=== PATIENT | female | born 1960 | race Caucasian/White ===

== ENCOUNTER 2017-12-05 11:35 | Day surgery (SDC) | payer OTHER ==
[~2017-12-05 11:35] MED LIST: DIPHENHYDRAMINE HCL 50 MG/ML VIAL ONE; EPINEPHRINE INJ 1 MG/10 ML DISP.SYRIN ONE; FENTANYL CITRATE INJ/PF 100 MCG/2 ML AMPUL ONE; FLUMAZENIL INJ 0.5 MG/5 ML VIAL ONE; GLUCAGON,HUMAN RECOMB 1 MG INJ ONE; MIDAZOLAM 2 MG/2 ML INJ ONE; NALOXONE HCL INJ/PF 0.4 MG/1 ML SDV ONE; ONDANSETRON HCL INJ/PF 4 MG/2 ML SDV ONE
[2017-12-05] MEDS: MIDAZOLAM 2 MG/2 ML INJ ONE ×2 (12:07→12:11)
--- NOTE | 2017-12-05 12:53 | Operative Report ---
Operative Report DATE OF SURGERY: 12/05/17 Operative Report: The risks benefits and alternatives of the procedure explained to the patient in detail and informed consent is obtained.A GIF Olympus video scope was inserted into the patient's mouth and hypopharynx, the esophagus is identified intubated and insufflated, the scope was then advanced through the esophagus stomach and duodenum, retroflexion maneuver is done, the esophagus stomach and first and second portions of the duodenum examined PREOPERATIVE DIAGNOSIS: Epigastric pain, rule out peptic ulcer disease POSTOPERATIVE DIAGNOSIS: Gastritis status post biopsy rule out Helicobacter pylori OPERATION: EGD with biopsy SURGEON: MARY KEITA ANESTHESIA: Moderate Sedation - 4 mg of Versed, 50 mcg of fentanyl. Conscious sedation monitoring time 30 minutes. TISSUE REMOVED OR ALTERED: As noted above. COMPLICATIONS: None. ESTIMATED BLOOD LOSS: None. INTRAOPERATIVE FINDINGS: As noted above. PROCEDURE: Patient tolerated the procedure well. No immediate postprocedure complications are noted. Patient discharged in good condition. Discharge date 12/05/2017. Discharge diet: Regular. Discharge activity: Regular. 2-3 week follow-up to discuss findings. Patient is instructed to call the office or proceed to the emergency room should there be any further problems or questions. We will wait on the pathology.
[2017-12-05 13:36] VITALS: BP 123/79
== END 2017-12-05 13:30 | disposition home or self-care (01) ==
LOC: END 11:35
PROVIDERS: ATTEND Internal Medicine Gastroenterology
DX: K29.70 Gastritis, unspecified, without bleeding (principal); J45.909 Unspecified asthma, uncomplicated; E78.5 Hyperlipidemia, unspecified; G47.33 Obstructive sleep apnea (adult) (pediatric); J45.20 Mild intermittent asthma, uncomplicated; R60.9 Edema, unspecified; Z79.899 Other long term (current) drug therapy; Z79.1 Long term (current) use of non-steroidal anti-inflammatories (NSAID); Z88.5 Allergy status to narcotic agent; Z88.8 Allergy status to other drugs, medicaments and biological substances
CPT/HCPCS: 43239; 88305 ×2; J2250; J3010; J0171; J1200; J1610; J2310; J2405; J3490

== ENCOUNTER 2018-07-04 16:20 | Observation (INO) | payer OTHER ==
[~2018-07-04 16:20] MED LIST changes: +DEXAMETHASONE SOD PHOSPHATE INJ 4 MG/1 ML VIAL ONE; -DIPHENHYDRAMINE HCL 50 MG/ML VIAL ONE; -EPINEPHRINE INJ 1 MG/10 ML DISP.SYRIN ONE; -FENTANYL CITRATE INJ/PF 100 MCG/2 ML AMPUL ONE; -FLUMAZENIL INJ 0.5 MG/5 ML VIAL ONE; -GLUCAGON,HUMAN RECOMB 1 MG INJ ONE; +GLYCOPYRROLATE 1 MG/5 ML SYRINGE ONE; -MIDAZOLAM 2 MG/2 ML INJ ONE; -NALOXONE HCL INJ/PF 0.4 MG/1 ML SDV ONE; +NEOSTIGMINE METHYLSULFATE 10 MG/10 ML VIAL ONE; +ROCURONIUM BROMIDE INJ 50 MG/5 ML VIAL IV ONE; +SUCCINYLCHOLINE CHLORIDE INJ 200 MG/10 ML VIAL ONE
[2018-07-04] MEDS ORDERED: ONDANSETRON HCL INJ/PF 4 MG/2 ML SDV IV ONE (16:51)
[2018-07-04] MEDS ORDERED: MORPHINE SULFATE 10 MG/ML INJ IV ONE ×2 (16:51→18:34)
--- NOTE | 2018-07-04 16:57 | ER Document Report ---
ED Medical Screen (RME) - General Chief Complaint: Flank Pain Stated Complaint: ABDOMINAL PAIN Time Seen by Provider: 07/04/18 16:46 Primary Care Provider: TIERA KONG MD [Primary Care Provider] - Follow up as needed Mode of Arrival: Wheelchair Information source: Patient, Relative Notes: 57-year-old female with hypertension, previous history of kidney stones presents with acute onset of generalized abdominal pain that started at 5 AM. She describes the pain as severe, constant with associated nausea, vomiting. I have greeted and performed a rapid initial assessment of this patient. A comprehensive ED assessment and evaluation of the patient, analysis of test results and completion of medical decision making process we will be contacted by additional ED providers. PHYSICAL EXAMINATION: Vital signs reviewed GENERAL: Moderate distress, LUNGS: No respiratory distress Musculoskeletal: Normal range of motion NEUROLOGICAL: Normal speech, normal gait. PSYCH: Normal mood, normal affect. SKIN: Warm, Dry, normal turgor, no rashes or lesions noted. TRAVEL OUTSIDE OF THE [place] IN LAST 30 DAYS: No - HPI Onset: This morning Onset/Duration: Sudden Quality of pain: Throbbing Severity: Severe Associated Symptoms: Abdominal pain, Nausea, Vomiting Exacerbated by: Denies Relieved by: Denies Similar symptoms previously: No Recently seen / treated by doctor: No - Related Data Smoking: Non-smoker Frequency of alcohol use: None Drug Abuse: None Allergies/Adverse Reactions: celecoxib [From Celebrex] Allergy (Verified 07/04/18 16:22) VOMITING diclofenac [Diclofenac] Allergy (Verified 07/04/18 16:22) lisinopril [Lisinopril] Allergy (Verified 07/04/18 16:22) lorazepam [From Ativan] Allergy (Verified 07/04/18 16:22) oxycodone HCl [From Percocet] Allergy (Verified 07/04/18 16:22) povidone-iodine [From Betadine] Allergy (Verified 07/04/18 16:22) Generalized rash pramipexole di-HCl [From Mirapex] Allergy (Verified 07/04/18 16:22) Nausea quetiapine fumarate [From Seroquel] Allergy (Verified 07/04/18 16:22) Irritability Soap [From Betadine] Allergy (Verified 07/04/18 16:22) Generalized rash Sulfa (Sulfonamide Antibiotics) Allergy (Verified 07/04/18 16:22) Generalized rash ketorolac [From Toradol] Adverse Reaction (Verified 07/04/18 16:22) Delusions REQUIM Adverse Reaction (Uncoded 07/04/18 16:22) Past Medical History - Social History Frequency of alcohol use: Occasional Drug Abuse: None - Past Medical History Cardiac Medical History: Reports: Hx Hypertension Denies: Hx Coronary Artery Disease, Hx Heart Attack Pulmonary Medical History: Reports: Hx Asthma - "WINTER ASTHMA" Denies: Hx Bronchitis, Hx COPD, Hx Pneumonia Neurological Medical History: Denies: Hx Cerebrovascular Accident, Hx Seizures Renal/ Medical History: Reports: Hx Kidney Stones. Denies: Hx Peritoneal Dialysis Musculoskeltal Medical History: Denies Hx Arthritis Past Surgical History: Reports: Hx Hysterectomy, Hx Orthopedic Surgery - L foot, L shoulder - Immunizations Hx Diphtheria, Pertussis, Tetanus Vaccination: Yes Physical Exam - Vital signs Vitals: Temp Pulse Resp BP Pulse Ox 98.7 F 110 H 20 130/63 H 98 07/04/18 16:26 07/04/18 16:26 07/04/18 16:26 07/04/18 16:26 07/04/18 16:26 Course - Vital Signs Vital signs: Temp Pulse Resp BP Pulse Ox 98.7 F 110 H 20 130/63 H 98 07/04/18 16:26 07/04/18 16:26 07/04/18 16:26 07/04/18 16:26 07/04/18 16:26 Doctor's Discharge - Discharge Referrals: TIERA KONG MD [Primary Care Provider] - Follow up as needed
[2018-07-04 17:34] LABS: HEMATOCRIT 43.1 % (36.0-47.0); HEMOGLOBIN 15.1 g/dL (12.0-15.5); MEAN CORPUSCULAR HEMOGLOBIN 30.3 pg (27.0-33.4); MEAN CORPUSCULAR VOLUME 87 fl (80-97); PLATELET COUNT 321 10^3/uL (150-450); RED BLOOD COUNT 4.98 10^6/uL (3.72-5.28); RED CELL DISTRIBUTION WIDTH 12.6 % (11.5-14.0); WHITE BLOOD COUNT 21.3 10^3/uL (4.0-10.5)
--- NOTE | 2018-07-04 17:45 | ER Document Report ---
ED GI/ - General Chief Complaint: Flank Pain Stated Complaint: ABDOMINAL PAIN Time Seen by Provider: 07/04/18 16:46 Primary Care Provider: TIERA KONG MD [Primary Care Provider] - Follow up as needed Mode of Arrival: Wheelchair Notes: Patient was awakened about 5:15 AM this morning by severe pain in her lower abdomen. Over the following 5 hours, the pain subsided in the front and went to the lower back bilaterally. She is been nauseated and vomited twice. No change in bowel habits. She has not produce very much urine today, less than a teaspoon at a time, but feels her bladder may be full. She has not had any fever, although she has felt cold. She is never had any abdominal surgeries. Thinks she passed a kidney stone last spring, but no other times. PMH: Hypertension, laryngeal reflux, allergies. TRAVEL OUTSIDE OF THE [place] IN LAST 30 DAYS: No - Related Data Allergies/Adverse Reactions: celecoxib [From Celebrex] Allergy (Verified 07/04/18 16:22) VOMITING diclofenac [Diclofenac] Allergy (Verified 07/04/18 16:22) lisinopril [Lisinopril] Allergy (Verified 07/04/18 16:22) lorazepam [From Ativan] Allergy (Verified 07/04/18 16:22) oxycodone HCl [From Percocet] Allergy (Verified 07/04/18 16:22) povidone-iodine [From Betadine] Allergy (Verified 07/04/18 16:22) Generalized rash pramipexole di-HCl [From Mirapex] Allergy (Verified 07/04/18 16:22) Nausea quetiapine fumarate [From Seroquel] Allergy (Verified 07/04/18 16:22) Irritability Soap [From Betadine] Allergy (Verified 07/04/18 16:22) Generalized rash Sulfa (Sulfonamide Antibiotics) Allergy (Verified 07/04/18 16:22) Generalized rash ketorolac [From Toradol] Adverse Reaction (Verified 07/04/18 16:22) Delusions REQUIM Adverse Reaction (Uncoded 07/04/18 16:22) Past Medical History - General Information source: Patient, Relative - Social History Smoking Status: Never Smoker Frequency of alcohol use: Occasional Drug Abuse: None Family History: Reviewed & Not Pertinent Patient has suicidal ideation: No Patient has homicidal ideation: No - Past Medical History Cardiac Medical History: Reports: Hx Hypertension Pulmonary Medical History: Reports: Hx Asthma - "WINTER ASTHMA" Renal/ Medical History: Reports: Hx Kidney Stones Past Surgical History: Reports: None, Hx Hysterectomy, Hx Orthopedic Surgery - L foot, L shoulder - Immunizations Hx Diphtheria, Pertussis, Tetanus Vaccination: Yes Review of Systems - Review of Systems Notes: REVIEW OF SYSTEMS: CONSTITUTIONAL : Denies fever. EENT: Denies eye, ear, nose or mouth or throat pain or other symptoms. CARDIOVASCULAR: Denies chest pain. RESPIRATORY: Denies cough, chest congestion, or shortness of breath. GASTROINTESTINAL: See HPI. GENITOURINARY: Denies difficulty or painful urinating, urinary frequency, blood in urine. MUSCULOSKELETAL: Denies back or neck pain. Denies joint pain or swelling. SKIN: Denies rash or skin lesions. NEUROLOGICAL: Denies LOC or altered mental status. Denies headache. Denies sensory loss or motor deficits. ALL OTHER SYSTEMS REVIEWED AND NEGATIVE. Constitutional: denies: Fever Gastrointestinal: denies: Vomiting Musculoskeletal: denies: Leg swelling Skin: Other - no hives. denies: Rash Neurological/Psychological: Other - no slurred speech Physical Exam - Vital signs Vitals: Temp Pulse Resp BP Pulse Ox 98.7 F 110 H 20 130/63 H 98 07/04/18 16:26 07/04/18 16:26 07/04/18 16:26 07/04/18 16:26 07/04/18 16:26 Interpretation: Tachycardic. No: Hypotensive - Mild - Notes Notes: PHYSICAL EXAMINATION: GENERAL: Well-appearing, but appears to be in pain and I am seeing her after she has had 5 mg of morphine IV from triage. Says her pain was a 5 before the pain medication and is now 2 or 3. HEAD: Atraumatic, normocephalic. EYES: Pupils equal round and reactive to light, extraocular movements intact. NECK: Normal range of motion, supple. LUNGS: Breath sounds clear and equal bilaterally. HEART: Regular rate and rhythm without murmurs. ABDOMEN: Soft, with some diffuse tenderness throughout the entire abdomen without any localization. Perhaps some guarding, but no rebound. No masses felt. No bruits heard. BACK: No tenderness throughout entire back. EXTREMITIES: Normal range of motion without pain. NEUROLOGICAL: Difficult to walk because of pain. Normal speech. Grossly normal sensory, motor, and reflex exams. Awake, alert, and oriented x3. Cranial ne rves normal. PSYCH: Normal mood, normal affect. SKIN: Warm, dry, no rashes. Course - Re-evaluation Re-evalutation: 07/04/18 19:08 IV fluids were administered. Antibiotics were administered IV. CT scan was obtained with IV contrast. CT scan reviewed with radiologist who commented on the findings of what looks like a cecum down in the pelvis with some radiopaque substance in the cecal area. Requested consult by surgeon weatherization operations manager and Dr. Benavides came to the ER and reviewed the patient's CT scan with me in shows a very large appendix with an appendicolith. Patient will be going to the OR for appendectomy. - Vital Signs Vital signs: Temp Pulse Resp BP Pulse Ox 100 F 110 H 18 130/63 H 96 07/04/18 18:59 07/04/18 18:59 07/04/18 18:59 07/04/18 16:26 07/04/18 18:59 - Laboratory Result Diagrams: 07/04/18 17:18 07/04/18 17:18 Laboratory results interpreted by me: 07/04/18 07/04/18 07/04/18 17:18 17:18 18:01 WBC 21.3 H Seg Neuts % (Manual) 87 H Lymphocytes % (Manual) 9 L Abs Neuts (Manual) 18.5 H Glucose 111 H ALT 8 L Urine Ketones 20 H Discharge - Discharge Clinical Impression: Abdominal pain, Acute appendicitis Condition: Stable Disposition: ADMITTED INPATIENT Admitting Provider: Surgicalist Unit Admitted: OR Referrals: TIERA KONG MD [Primary Care Provider] - Follow up as needed
[2018-07-04 17:46] LABS: ALANINE AMINOTRANSFERASE 8 U/L (9-52); ALBUMIN 4.7 g/dL (3.5-5.0); ALKALINE PHOSPHATASE 72 U/L (38-126); ANION GAP 15 (5-19); ASPARTATE AMINO TRANSFERASE 20 U/L (14-36); BILIRUBIN,DIRECT 0.2 mg/dL (0.0-0.4); BILIRUBIN,TOTAL 0.8 mg/dL (0.2-1.3); BLOOD UREA NITROGEN 14 mg/dL (7-20); CARBON DIOXIDE 26 mmol/L (22-30); CHLORIDE 98 mmol/L (98-107); GLUCOSE 111 mg/dL (75-110); LIPASE 71.3 U/L (23-300); POTASSIUM 4.2 mmol/L (3.6-5.0); SODIUM 139.3 mmol/L (137-145); TOTAL PROTEIN 7.3 g/dL (6.3-8.2)
[2018-07-04 17:52] LABS: ABSOLUTE LYMPHOCYTES# (MANUAL) 1.9 10^3/uL (0.5-4.7); ABSOLUTE MONOCYTES # (MANUAL) 0.9 10^3/uL (0.1-1.4); ABSOLUTE NEUTROPHILS# (MANUAL) 18.5 10^3/uL (1.7-8.2); BASOPHILS % (MANUAL) 0 % (0-2); EOSINOPHILS % (MANUAL) 0 % (0-6); LYMPHOCYTES % (MANUAL) 9 % (13-45); MONOCYTES % (MANUAL) 4 % (3-13); SEGMENTED NEUTROPHILS % (MAN) 87 % (42-78); TOTAL CELLS COUNTED 100
[2018-07-04 17:54] LABS: OVALOCYTES SLIGHT; PLATELET COMMENT ADEQUATE; POIKILOCYTOSIS SLIGHT
[2018-07-04] MEDS ORDERED: NORMAL SALINE 500 ML IV ONE (18:30)
[2018-07-04] MEDS ORDERED: CEFTRIAXONE 1 GM/D5W RTU 1 GM/50 ML RTUPB IV ONE (18:30)
[2018-07-04] MEDS ORDERED: NORMAL SALINE 1000 ML 1,000 ML IV ONE (18:33)
[2018-07-04 18:36] LABS: APPEARANCE,URINE CLEAR; BILIRUBIN,URINE NEGATIVE (NEGATIVE); COLOR,URINE YELLOW; GLUCOSE, URINE NEGATIVE (NEGATIVE); KETONES,URINE 20 mg/dL (NEGATIVE); LEUKOCYTE ESTERASE,URINE NEGATIVE (NEGATIVE); NITRITE,URINE NEGATIVE (NEGATIVE); PROTEIN,URINE NEGATIVE (NEGATIVE); URINE SPECIFIC GRAVITY 1.023; UROBILINOGEN,URINE NEGATIVE mg/dL (<2.0)
--- NOTE | 2018-07-04 18:51 | RADIOLOGY REPORT (SQ) ---
EXAM DESCRIPTION: CT ABD/PELVIS WITH IV ONLY COMPLETED DATE/TIME: 07/04/2018 6:32 pm REASON FOR STUDY: Acute onset of abdominal pain COMPARISON: None. TECHNIQUE: CT scan of the abdomen and pelvis performed using helical scanning technique with dynamic intravenous contrast injection. No oral contrast. Images reviewed with lung, soft tissue, and bone windows. Reconstructed coronal and sagittal MPR images reviewed. Delayed images for evaluation of the urinary system also acquired. All images stored on PACS. All CT scanners at this facility use dose modulation, iterative reconstruction, and/or weight based d osing when appropriate to reduce radiation dose to as low as reasonably achievable (ALARA). [facility]: Dose Right [facility]: CareDose [facility]: Dose Right [facility]: Teradose 4D [facility]: SkilledWizard CONTRAST TYPE AND DOSE: contrast/concentration: Isovue 350.00 mg/ml; Total Contrast Delivered: 65.0 ml; Total Saline Delivered: 65.0 ml RENAL FUNCTION: BUN 14 creatinine 0.71 RADIATION DOSE: CT Rad equipment meets quality standard of care and radiation dose reduction techniq ues were employed. CTDIvol: 5.1 - 6.5 mGy. DLP: 597 mGy-cm.. LIMITATIONS: None. FINDINGS: LOWER CHEST: No significant findings. No nodules or infiltrates. LIVER: Normal size. No masses. No dilated ducts. SPLEEN: Normal size. No focal lesions. PANCREAS: No masses. No significant calcifications. No adjacent inflammation or peripancreatic fluid collections. Pancreatic duct not dilated. GALLBLADDER: No identified stones by CT criteria. No inflammatory changes to suggest cholecystitis. ADRENAL GLANDS: No significant masses or asymmetry. RIGHT KIDNEY AND URETER: No solid masses. No significant calcifications. No hydronephrosis or hyd roureter. LEFT KIDNEY AND URETER: No solid masses. No significant calcifications. No hydronephrosis or hydr oureter. AORTA AND VESSELS: No aneurysm. No dissection. Renal arteries, SMA, celiac without stenosis. RETROPERITONEUM: No retroperitoneal adenopathy, hemorrhage or masses. BOWEL AND PERITONEAL CAVITY: There is radiopaque material in large bowel in the pelvis, etiology unce rtain. This is seen on the initial series before contrast appears in the urinary bladder on the kaylee yed series. APPENDIX: Not identified. PELVIS: There is a small crescent-shaped fluid collection in the pelvis seen best on image 72. ABDOMINAL WALL: No masses. No hernias. BONES: No significant or acute findings. OTHER: No other significant finding. IMPRESSION: 1. There is radiopaque material in the large bowel in the pelvis as described. This do es not appear to represent fistula between the bladder and the large bowel. 2. There is a small crescent-shaped fluid collection in the pelvis. Possible perirectal abscess. TECHNICAL DOCUMENTATION: JOB ID: [id number] Quality ID # [id number]: Final reports with documentation of one or more dose reduction techniques (e.g., Au tomated exposure control, adjustment of the mA and/or kV according to patient size, use of iterative reconstruction technique) 2010 [facility]- All Rights Reserved Reading location - IP/workstation name: [email or web address]
--- NOTE | 2018-07-04 19:24 | PDOC H&P ---
History of Present Illness Admission Date/PCP: TIERA KONG MD Patient complains of: Lower abdominal pain, nausea, malaise History of Present Illness: LAKEISHA CARRILLO is a 57 year old female with a 24-hour history of lower abdominal pain that radiates to the back. Patient reports that she cannot get comfortable. She has had nausea and vomiting. She reports subjective fevers, chills, and malaise. She denies melena, hematochezia, shortness of breath, chest pain, dizziness, orthostasis, headache. Her pain is an 8 out of 10. It is sharp in nature and stabbing. Nothing makes her pain better. Movement makes her pain worse. Past Medical History Cardiac Medical History: Reports: Hypertension Denies: Coronary Artery Disease, Myocardial Infarction Pulmonary Medical History: Reports: Asthma - "WINTER ASTHMA" Denies: Bronchitis, Chronic Obstructive Pulmonary Disease (COPD), Pneumonia Neurological Medical History: Denies: Seizures Musculoskeltal Medical History: Denies: Arthritis Hematology: Denies: Anemia Past Surgical History Past Surgical History: Reports: Hysterectomy, Orthopedic Surgery - L foot, L shoulder Social History Smoking Status: Never Smoker Frequency of Alcohol Use: Rare Hx Recreational Drug Use: No Hx Prescription Drug Abuse: No Family History Family History: Reviewed & Not Pertinent Parental Family History Reviewed: Yes Children Family History Reviewed: Yes Sibling(s) Family History Reviewed.: Yes Medication/Allergy Home Medications: Ascorbic Acid [Vitamin C 500 mg Tablet] 500 mg PO DAILY 07/06/15 Control 1 tab PO DAILY 07/06/15 Cetirizine HCl [Zyrtec 10 mg Tablet] 1 tab PO DAILY 07/06/15 Cyclobenzaprine HCl [Flexeril 10 mg Tablet] 10 mg PO DAILY 07/06/15 Melatonin/Pyridoxine [Melatonin 3 Mg Tablet] 1 each PO QHS 07/06/15 Multivitamin [Multivitamins] 1 each PO DAILY 07/06/15 Potassium Chloride 20 meq PO DAILY 07/06/15 Zolpidem Tartrate [Ambien 5 mg Tablet] 5 mg PO HSP PRN 07/06/15 Cimetidine [Tagamet 200 mg Tablet] 1 tab PO DAILY 12/04/17 Omeprazole Magnesium [Prilosec Otc] 20 mg PO 12/04/17 Calcium Carbonate/Vitamin D3 [Calcium 500+D Tablet Chew] 1 tab PO DAILY 12/05/17 Ciclesonide [Alvesco HFA] 1 puff IH BID PRN 12/05/17 Fluticasone Propionate [Flonase Allergy Relief] 1 spray DAILY 12/05/17 Hydrochlorothiazide 1 tab PO DAILY 12/05/17 Psyllium Husk [Metamucil] 660 gm PO DAILY 12/05/17 Allergies/Adverse Reactions: celecoxib [From Celebrex] Allergy (Verified 07/04/18 16:22) VOMITING diclofenac [Diclofenac] Allergy (Verified 07/04/18 16:22) lisinopril [Lisinopril] Allergy (Verified 07/04/18 16:22) lorazepam [From Ativan] Allergy (Verified 07/04/18 16:22) oxycodone HCl [From Percocet] Allergy (Verified 07/04/18 16:22) povidone-iodine [From Betadine] Allergy (Verified 07/04/18 16:22) Generalized rash pramipexole di-HCl [From Mirapex] Allergy (Verified 07/04/18 16:22) Nausea quetiapine fumarate [From Seroquel] Allergy (Verified 07/04/18 16:22) Irritability Soap [From Betadine] Allergy (Verified 07/04/18 16:22) Generalized rash Sulfa (Sulfonamide Antibiotics) Allergy (Verified 07/04/18 16:22) Generalized rash ketorolac [From Toradol] Adverse Reaction (Verified 07/04/18 16:22) Delusions REQUIM Adverse Reaction (Uncoded 07/04/18 16:22) Review of Systems Constitutional: PRESENT: anorexia, chills. ABSENT: headache(s), weakness Eyes: ABSENT: visual disturbances Ears: ABSENT: hearing changes Nose, Mouth, and Throat: ABSENT: sore throat Cardiovascular: ABSENT: chest pain, dyspnea on exertion Respiratory: ABSENT: cough, dyspnea Gastrointestinal: PRESENT: abdominal pain, nausea, vomiting Genitourinary: PRESENT: difficulty urinating, dysuria Musculoskeletal: PRESENT: back pain Integumentary: ABSENT: pruritus, rash Neurological: ABSENT: confusion, convulsions, dizziness Psychiatric: ABSENT: anxiety, depression Endocrine: ABSENT: cold intolerance Hematologic/Lymphatic: ABSENT: easy bleeding, easy bruising Physical Exam Vital Signs: Temp Pulse Resp BP Pulse Ox 100 F 110 H 18 130/63 H 96 07/04/18 18:59 07/04/18 18:59 07/04/18 18:59 07/04/18 16:26 07/04/18 18:59 Intake & Output 07/03/18 07/04/18 07/05/18 06:59 06:59 06:59 Weight 57.153 kg General appearance: PRESENT: mild distress Head exam: PRESENT: atraumatic, normocephalic Eye exam: PRESENT: EOMI, PERRLA. ABSENT: scleral icterus Mouth exam: PRESENT: moist, neck supple Neck exam: ABSENT: meningismus, tenderness, thyromegaly, tracheal deviation Respiratory exam: PRESENT: clear to auscultation lisa, unlabored. ABSENT: wheezes Cardiovascular exam: PRESENT: RRR Pulses: PRESENT: normal radial pulses GI/Abdominal exam: PRESENT: guarding, soft, tenderness - Lower midline. ABSENT: distended, rebound, rigid Rectal exam: PRESENT: deferred Extremities exam: ABSENT: clubbing Musculoskeletal exam: ABSENT: deformity Neurological exam: PRESENT: alert, awake, oriented to person, oriented to place, oriented to time, oriented to situation Psychiatric exam: ABSENT: agitated, anxious, depressed Focused psych exam: ABSENT: delusional Skin exam: ABSENT: cyanosis, erythema, jaundice Results Laboratory Results: 07/04/18 17:18 07/04/18 17:18 07/04/18 07/04/18 07/04/18 17:18 17:18 18:01 WBC 21.3 H RBC 4.98 Hgb 15.1 Hct 43.1 MCV 87 MCH 30.3 MCHC 35.0 RDW 12.6 Plt Count 321 Seg Neutrophils % Not Reportable Lymphocytes % Not Reportable Monocytes % Not Reportable Eosinophils % Not Reportable Basophils % Not Reportable Absolute Neutrophils Not Reportable Absolute Lymphocytes Not Reportable Absolute Monocytes Not Reportable Absolute Eosinophils Not Reportable Absolute Basophils Not Reportable Sodium 139.3 Potassium 4.2 Chloride 98 Carbon Dioxide 26 Anion Gap 15 BUN 14 Creatinine 0.71 Est GFR ( Amer) > 60 Est GFR (Non-Af Amer) > 60 Glucose 111 H Lactic Acid Calcium 10.0 Total Bilirubin 0.8 AST 20 ALT 8 L Alkaline Phosphatase 72 Total Protein 7.3 Albumin 4.7 Lipase 71.3 Urine Color YELLOW Urine Appearance CLEAR Urine pH 7.0 Ur Specific [place] 1.023 Urine Protein NEGATIVE Urine Glucose (UA) NEGATIVE Urine Ketones 20 H Urine Blood NEGATIVE Urine Nitrite NEGATIVE Ur Leukocyte Esterase NEGATIVE Urine WBC (Auto) 1 Urine RBC (Auto) 1 07/04/18 18:30 WBC RBC Hgb Hct MCV MCH MCHC RDW Plt Count Seg Neutrophils % Lymphocytes % Monocytes % Eosinophils % Basophils % Absolute Neutrophils Absolute Lymphocytes Absolute Monocytes Absolute Eosinophils Absolute Basophils Sodium Potassium Chloride Carbon Dioxide Anion Gap BUN Creatinine Est GFR ( Amer) Est GFR (Non-Af Amer) Glucose Lactic Acid 1.3 Calcium Total Bilirubin AST ALT Alkaline Phosphatase Total Protein Albumin Lipase Urine Color Urine Appearance Urine pH Ur Specific [place] Urine Protein Urine Glucose (UA) Urine Ketones Urine Blood Urine Nitrite Ur Leukocyte Esterase Urine WBC (Auto) Urine RBC (Auto) Impressions: Abdomen/Pelvis CT 07/04/18 16:57 IMPRESSION: 1. There is radiopaque material in the large bowel in the pelvis as described. This does not appear to represent fistula between the bladder and the large bowel. 2. There is a small crescent-shaped fluid collection in the pelvis. Possible perirectal abscess. Assessment & Plan - Diagnosis (1) Acute appendicitis Qualifiers: Acute appendicitis type: with localized peritonitis Appendicitis gangrene presence: unspecified whether gangrene present Appendicitis perforation presence: unspecified whether perforation present Appendicitis abscess presence: without abscess Qualified Code(s): K35.30 - Acute appendicitis with localized peritonitis, without perforation or gangrene Is this a current diagnosis for this admission?: Yes - Plan Summary Plan Summary: This is a 57-year-old female with lower abdominal pain. Patient has an elevated white blood cell count. I have personally reviewed her CT scan. She has acute appendicitis with a dilated, fluid-filled appendix and appendicolith present. I have recommended laparoscopic versus open appendectomy for the patient. The patient and her have agreed to this. Risks and benefits were discussed, informed consent was obtained, and all questions were answered. Plan for appendectomy AJ.
[2018-07-04] MEDS ORDERED: BUPIVACAINE HCL 0.25 % INJ/PF (2.5 MG/1 ML) 30 ML VIAL ONE (19:52)
[2018-07-04] MEDS ORDERED: FENTANYL CITRATE INJ/PF 100 MCG/2 ML AMPUL ONE ×2 (19:52→21:48)
[2018-07-04] MEDS ORDERED: PROPOFOL INJ 200 MG/20 ML VIAL IV ONE (19:53)
[2018-07-04] MEDS ORDERED: EPHEDRINE SULFATE INJ 50 MG/1 ML AMPULE ONE (19:53)
[2018-07-04] MEDS ORDERED: ACETAMINOPHEN 1,000 MG/100 ML RTUPB IV ONE (19:53)
[2018-07-04] MEDS ORDERED: MIDAZOLAM 2 MG/2 ML INJ ONE (19:53)
[2018-07-04] MEDS ORDERED: METRONIDAZOLE 500 MG/NS RTU 500 MG/100 ML RTUPB IV ONE (20:10)
[2018-07-04] MEDS ORDERED: PROMETHAZINE HCL INJ 25 MG/1 ML VIAL IV PRN (21:17)
[2018-07-04] MEDS ORDERED: DIPHENHYDRAMINE HCL 50 MG/ML VIAL IV PRN (21:17)
[2018-07-04] MEDS ORDERED: FENTANYL CITRATE INJ/PF 100 MCG/2 ML AMPUL IV PRN ×2 (21:17)
[2018-07-04] MEDS ORDERED: ONDANSETRON HCL INJ/PF 4 MG/2 ML SDV IV PRN (21:30)
--- NOTE | 2018-07-04 21:40 | Operative Report ---
Nonrecallable Operative Report DATE OF SURGERY: 07/04/18 PREOPERATIVE DIAGNOSIS: Acute appendicitis POSTOPERATIVE DIAGNOSIS: Acute nonperforated appendicitis OPERATION: Laparoscopic appendectomy SURGEON: VIDHI JARRELL ANESTHESIA: GA TISSUE REMOVED OR ALTERED: Appendix COMPLICATIONS: None apparent ESTIMATED BLOOD LOSS: Minimal PROCEDURE: Drains/implants: None. Procedure in detail: After informed consent was obtained, the patient was brought into the operating room and laid in the supine position. The area of t he abdomen was prepped and draped in a normal sterile fashion. A supraumbilical incision was created with a 15 blade scalpel. Dissection was carried through the subcutaneous tissue using sharp and blunt means. The linea alba fascia was incised sharply, the abdomen was entered sharply. The balloon trocar was inserted, and pneumoperitoneum was achieved. A left lower quadrant 5 mm trocar was then placed under direct laparoscopic visualization. Another 5 mm trocar was placed in the suprapubic position. The appendix was identified. It was inflamed and injected, but was not overtly perforated. The appendix was retracted anteriorly. The mesoappendix was taken down using the harmonic scalpel. PDS Endoloops were used around the base of the appendix x2. The appendix was amputated using the harmonic scalpel. It was then placed into an Endo Catch bag and pulled out of the umbilicus. The camera was reinserted. The right lower quadrant and pelvis were inspected. There was no active bleeding. Once this was confirmed, the 5 mm trochars were removed under direct laparoscopic visualization. The supraumbilical trocar was removed, and pneumoperitoneum was relieved. The supraumbilical fascia was closed using 0 Vicryl suture in [id number] fashion. The overlying skin was closed using 4-0 Vicryl Rapide suture in subcuticular fashion. All sponge, instrument, and needle counts were correct x2. Condition: Stable.
[2018-07-04] MEDS: FENTANYL CITRATE INJ/PF 100 MCG/2 ML AMPUL IV PRN ×4 (21:49→22:21)
[2018-07-04] MEDS ORDERED: FAMOTIDINE INJ/PF 20 MG/2 ML SDV IV SCH (22:00)
[2018-07-05] MEDS ORDERED: RINGERS SOLUTION,LACTATED 1,000 ML IV PRN (00:16)
[2018-07-05] MEDS: MORPHINE SULFATE 10 MG/ML INJ IV PRN ×2 (00:28→06:26)
[2018-07-05] MEDS ORDERED: METRONIDAZOLE 500 MG/NS RTU 500 MG/100 ML RTUPB IV SCH (05:00)
[2018-07-05 07:22] LABS: ABSOLUTE LYMPHOCYTES (AUTO) 1.2 10^3/uL (0.5-4.7); ABSOLUTE MONOCYTES (AUTO) 0.7 10^3/uL (0.1-1.4); ABSOLUTE NEUT (AUTO) 13.5 10^3/uL (1.7-8.2); BASOPHILS % (AUTO) 0.2 % (0-2); HEMATOCRIT 33.6 % (36.0-47.0); LYMPHOCYTES % (AUTO) 7.6 % (13-45); MEAN CORPUSCULAR HEMOGLOBIN 30.7 pg (27.0-33.4); MEAN CORPUSCULAR HGB CONC 35.4 g/dL (32.0-36.0); MEAN CORPUSCULAR VOLUME 87 fl (80-97); MONOCYTES % (AUTO) 4.3 % (3-13); PLATELET COUNT 219 10^3/uL (150-450); RED BLOOD COUNT 3.87 10^6/uL (3.72-5.28); RED CELL DISTRIBUTION WIDTH 13.3 % (11.5-14.0); SEGMENTED NEUTROPHILS % (AUTO) 87.9 % (42-78); TOTAL CELLS COUNTED % (AUTO) 100 %; WHITE BLOOD COUNT 15.4 10^3/uL (4.0-10.5)
--- NOTE | 2018-07-05 07:36 | EKG REPORT ---
SEVERITY:- ABNORMAL ECG - SINUS TACHYCARDIA BIATRIAL ABNORMALITIES CONSIDER RIGHT VENTRICULAR HYPERTROPHY NONSPECIFIC T ABNORMALITIES, LATERAL LEADS : Confirmed by: Jason Helton MD 05-Jul-2018 07:35:48
[2018-07-05 07:46] LABS: HEMOGLOBIN 11.9 g/dL (12.0-15.5)
[2018-07-05 09:06] VITALS: BP 94/40
--- NOTE | 2018-07-05 12:12 | DISCHARGE SUMMARY E ---
Discharge Summary NAME: LAKEISHA CARRILLO : 1960 AGE: 57Y ADMITTED: 07/04/2018 DISCHARGED: 07/05/2018 REASON FOR ADMISSION: Abdominal pain. SUMMARY OF HOSPITALIZATION: The patient is a 57-year-old white female who presented to the emergency department complaining of abdominal pain localized to the pelvic region. She presented to the emergency department with localized tenderness in the right lower quadrant. She had a leukocytosis of 21,000. She underwent CT scan of the abdomen and pelvis which showed findings consistent with acute appendicitis. Surgery was consulted. She was advised admission and brought onto the surgical service. Last evening she underwent laparoscopic appendectomy by Dr. Amadeo Benavides. She was found to have acute appendicitis without rupture. She tolerated the operation well and postoperatively had an uneventful course. By the following morning she was up ambulating, voiding, and tolerating a diet. She was felt to have received maximum benefit from the hospitalization and was discharged home. FINAL DIAGNOSIS: Clinically consistent with acute appendicitis, status post laparoscopic appendectomy. DISPOSITION: The patient will be discharged home in the care of her family. Take [id number] medications as needed. She will shower, allow Steri-Strips to fall off, and an appointment will be made for her to follow up with staff at [facility] in 1 to 2 weeks. She will be on a limited activity status. DICTATING PHYSICIAN: KORIN STORY M.D. [id number] PHY#: [id number] ID: [id number] JOB#: [id number] ACCT: [id number] cc:Asha CARLISLE M.D. >
[2018-07-06] MEDS ORDERED: METRONIDAZOLE 500 MG/NS RTU 500 MG/100 ML RTUPB IV SCH (05:00)
== END 2018-07-05 09:48 | disposition home or self-care (01) ==
LOC: ER 16:20 → EH 19:25 → INTOOBSV 19:25 → 2N 23:03
PROVIDERS: ATTEND Surgery
PROC: 0DTJ4ZZ Resection of Appendix, Percutaneous Endoscopic Approach (ICD-10-PCS; principal; 2018-07-04 20:30)
DX: K35.80 Unspecified acute appendicitis (principal); I10 Essential (primary) hypertension; R30.0 Dysuria; R39.198 Other difficulties with micturition; R00.0 Tachycardia, unspecified; Z90.710 Acquired absence of both cervix and uterus; Z79.899 Other long term (current) drug therapy; Z87.442 Personal history of urinary calculi
CPT/HCPCS: 93005; 96376; 99285; 51702; 96375; 96365; 36415 ×2; 83690; 85025 ×2; 80053; 81001; 83605; 88304 ×2; 74177; 93010; 44970; G0378 ×3; J2250; J3490 ×2; J1100; J3010; J2270 ×2; J0330; J2405 ×2; J7030; J7120; J2704; S0028; J0696; J0131; 840

== ENCOUNTER → 2018-07-10 | Outpatient (CLI) | payer OTHER ==
[2018-07-10 16:47] LABS: ABSOLUTE EOSINOPHILS # (AUTO) 0.1 10^3/uL (0.0-0.6); ABSOLUTE LYMPHOCYTES (AUTO) 2.5 10^3/uL (0.5-4.7); ABSOLUTE MONOCYTES (AUTO) 0.4 10^3/uL (0.1-1.4); ABSOLUTE NEUT (AUTO) 5.1 10^3/uL (1.7-8.2); BASOPHILS % (AUTO) 0.5 % (0-2); EOSINOPHILS % (AUTO) 1.2 % (0-6); MEAN CORPUSCULAR HEMOGLOBIN 30.5 pg (27.0-33.4); MEAN CORPUSCULAR HGB CONC 35.1 g/dL (32.0-36.0); MEAN CORPUSCULAR VOLUME 87 fl (80-97); MONOCYTES % (AUTO) 5.5 % (3-13); PLATELET COUNT 392 10^3/uL (150-450); SEGMENTED NEUTROPHILS % (AUTO) 61.8 % (42-78); TOTAL CELLS COUNTED % (AUTO) 100 %; WHITE BLOOD COUNT 8.2 10^3/uL (4.0-10.5)
== END ==
LOC: LAB 16:36
PROVIDERS: ATTEND Surgery
DX: R10.9 Unspecified abdominal pain (principal); Z90.49 Acquired absence of other specified parts of digestive tract
CPT/HCPCS: 36415; 85025

== ENCOUNTER → 2018-07-24 | Outpatient (CLI) | payer OTHER ==
--- NOTE | 2018-07-24 17:07 | WOMENS IMAGING REPORT ---
EXAM DESCRIPTION: BILAT SCREENING MAMMO W/CAD COMPLETED DATE/TIME: 07/24/2018 3:47 pm REASON FOR STUDY: Z12.31 ROUTINE BILATERAL SCREENING Z12.31 ENCNTR SCREEN MAMMOGRAM FOR MALIGNANT N EOPLASM OF TU COMPARISON: Multiple Since 2008 TECHNIQUE: Standard craniocaudal and mediolateral oblique views of each breast recorded using ZillionTVa l acquisition. LIMITATIONS: None. FINDINGS: No masses, calcifications or architectural distortion. No areas of suspicion. Read with the assistance of CAD. .[facility] - R2 Cenova Version 1.3 .[facility] Imaging - R2 Cenova Version 2.1 .[facility] Imaging - R2 Cenova Version 2.4 .[facility] R2 Cenova Version 2.4 .[facility] - R2 [employer] Version 9.2 IMPRESSION: NORMAL MAMMOGRAM. BIRADS 1. BREAST DENSITY: c. The breasts are heterogeneously dense, which may obscure small masses. BIRAD: 1 NEGATIVE RECOMMENDATION: ROUTINE SCREENING COMMENT: The patient has been notified of the results by letter per SA requirements. Additional no tification policies are in place for contacting patient with suspicious or incomplete findings. Quality ID #[id number]: The [employer] recommends an annual screening mammogram for women aged 40 years or over. This facility utilizes a reminder system to ensure that all patients receive reminder letters, and/or direct phone calls for appointments. This includes reminders for routine scr eening mammograms, diagnostic mammograms, or other Breast Imaging Interventions when appropriate. Th is patient will be placed in the appropriate reminder system. The [employer] (A[employer]) has developed recommendations for screening MRI of the breast s in certain patient populations, to be used in conjunction with mammography. Breast MRI surveillanc e may be appropriate for women with more than 20% lifetime risk of developing breast cancer as deter mined by genetic testing, significant family history of the disease, or history of mantle radiation f or Hodgkins Disease. ACR Practice Guidelines 2008. TECHNICAL DOCUMENTATION: FINDING NUMBER: (1) ASSESSMENT: (1) JOB ID: [id number] [employer]- All Rights Reserved Reading location - IP/workstation name: [email or web address]
== END ==
LOC: WI 15:35
PROVIDERS: ATTEND Obstetrics & Gynecology
DX: Z12.31 Encounter for screening mammogram for malignant neoplasm of breast (principal)
CPT/HCPCS: 77067

== ENCOUNTER → 2019-10-28 | Outpatient (CLI) | payer OTHER ==
--- NOTE | 2019-10-28 11:34 | WOMENS IMAGING REPORT ---
EXAM DESCRIPTION: BILAT SCREENING MAMMO W/CAD IMAGES COMPLETED DATE/TIME: 10/28/2019 11:19 am REASON FOR STUDY: Z12.31 SCREENING MAMMO Z12.31 ENCNTR SCREEN MAMMOGRAM FOR MALIGNANT NEOPLASM OF B RE COMPARISON: Multiple since 2008 EXAM PARAMETERS: Standard craniocaudal and mediolateral oblique views of each breast recorded using digital acquisition. Read with the assistance of CAD. .[facility] - Pop.it Insole Tape Stitcher Uco Version 9.2 LIMITATIONS: None. FINDINGS: No suspicious masses, suspicious calcifications or architectural distortion. No areas of c oncern. IMPRESSION: NEGATIVE MAMMOGRAM. BIRADS 1 BREAST DENSITY: c. The breasts are heterogeneously dense, which may obscure small masses. BIRAD: ASSESSMENT: 1 NEGATIVE RECOMMENDATION: ROUTINE SCREENING COMMENT: The patient has been notified of the results by letter per MQSA requirements. Additional no tification policies are in place for contacting patient with suspicious or incomplete findings. Quality ID #[id number]: The [employer] recommends an annual screening mammogram for women aged 40 years or over. This facility utilizes a reminder system to ensure that all patients receive reminder letters, and/or direct phone calls for appointments. This includes reminders for routine scr eening mammograms, diagnostic mammograms, or other Breast Imaging Interventions when appropriate. Th is patient will be placed in the appropriate reminder system. TECHNICAL DOCUMENTATION: FINDING NUMBER: (1) ASSESSMENT: (1) JOB ID: [id number] 2010 Sincerely- All Rights Reserved Reading location - IP/workstation name: [email or web address]
== END ==
LOC: WI 10:35
PROVIDERS: ATTEND Family Medicine
DX: Z12.31 Encounter for screening mammogram for malignant neoplasm of breast (principal)
CPT/HCPCS: 77067

== ENCOUNTER 2020-03-25 07:54 | Day surgery (SDC) | payer OTHER ==
[~2020-03-25 07:54] MED LIST changes: -DEXAMETHASONE SOD PHOSPHATE INJ 4 MG/1 ML VIAL ONE; -GLYCOPYRROLATE 1 MG/5 ML SYRINGE ONE; -NEOSTIGMINE METHYLSULFATE 10 MG/10 ML VIAL ONE; -ONDANSETRON HCL INJ/PF 4 MG/2 ML SDV ONE; +PROPOFOL INJ 200 MG/20 ML VIAL IV ONE; -ROCURONIUM BROMIDE INJ 50 MG/5 ML VIAL IV ONE; -SUCCINYLCHOLINE CHLORIDE INJ 200 MG/10 ML VIAL ONE
--- NOTE | 2020-03-25 09:48 | Operative Report ---
Operative Report DATE OF SURGERY: 03/25/20 Operative Report: The risks benefits and alternatives of the procedure explained to the patient in detail and informed consent is obtained.A GIF Olympus video scope was inserted into the patient's mouth and hypopharynx, the esophagus is identified intubated and insufflated, the scope was then advanced through the esophagus stomach and duodenum ,retroflexion maneuver is done ,the esophagus stomach and first and second portions of the duodenum examined PREOPERATIVE DIAGNOSIS: Abdominal bloating, epigastric pain POSTOPERATIVE DIAGNOSIS: Gastritis status post biopsy OPERATION: EGD with biopsy SURGEON: MARY KEITA ANESTHESIA: LMAC TISSUE REMOVED OR ALTERED: As noted above. COMPLICATIONS: None. ESTIMATED BLOOD LOSS: None. INTRAOPERATIVE FINDINGS: As noted above. PROCEDURE: Patient tolerated the procedure well. No immediate postprocedure complications are noted. Patient is discharged in good condition. Discharge date 03/25/2020. Discharge diet: Regular. Discharge activity: Regular. 2 to 3-week follow-up to discuss findings. Patient is instructed to call the office or proceed to the emergency room should there be any further problems or questions. Wait on the pathology.
[2020-03-25 09:53] VITALS: BP 101/64
--- OUTSIDE RECORDS SUMMARY | 2020-03-26 17:59 | XMS REPORT ---
:1960 [facility] [place] [address] [place] [id number] Care Team Providers Name Role Phone Ash RAMOS Attending Clinician Unavailable Allergies, Adverse Reactions, Alerts Allergy Name Allergy Status Severity Reaction(s) Onset Inactive Treat ing Comments Type Date Date Clinician SALMETEROL Drug Active U Hoarseness 2017-0 XINAFOATE allergy 11-22 00:00: 00 FLUTICASONE Drug Active U Hoarseness 0 PROPIONATE allergy 11-22 00:00: 00 Ativan Allergy to Active Itching substance Diclofenac Allergy to Active substance Mirapex Allergy to Active Nausea substance Procardia Allergy to Active Headache substance Requip Allergy to Active substance Seroquel Allergy to Active substance Advair Diskus Allergy to Active Other substance Betadine Allergy to Active Rash substance Celebrex Allergy to Active Vomiting substance Lisinopril Allergy to Active Rash substance Percocet Allergy to Active Headache substance Sulfa Allergy to Active Rash (Sulfonamide substance Antibiotics) Medications Ordered Filled Start Stop Current Ordering Indication Dosage Frequency Signature Comments Components Medication Medication Date Date Medication? Clinician (SIG) Name Name cyanocobala 2019-05 Yes cyanocobal min (vit 0-02 portillo (vit B-12) 1,000 17:45: B-12) mcg/mL 00 1,000 injection mcg/mL solutionInj injection ect 1 mL solution every month Inject 1 by mL every subcutaneou month by s route. subcutaneo us route. eszopiclone No eszopiclon 3 mg tablet e 3 mg qhs tablet qhs Flexeril 10 No 1 TID Flexeril mg tablet 10 mg Take 1 tablet tablet 3 Take 1 times a day tablet 3 by oral times a route as day by needed. oral route as needed. loratadine No loratadine 10 mg 10 mg tablet QD tablet QD magnesium No 1 magnesium oxide 400 oxide 400 mg (241.3 mg (241.3 mg mg magnesium) magnesium) tablet Take tablet 1 tablet as Take 1 needed by tablet as oral route. needed by oral route. ProAir HFA No ProAir HFA 90 90 mcg/actuati mcg/actuat on aerosol ion inhaler as aerosol needed inhaler as needed meclizine No meclizine 25 mg 25 mg tablet tablet cephalexin No cephalexin 500 mg 500 mg capsule capsule nitrofurant No nitrofuran oin toin monohydrate monohydrat /macrocryst e/macrocry als 100 mg stals 100 capsule mg capsule alendronate No alendronat 70 mg e 70 mg tablet Take tablet 1 tablet Take 1 every week tablet by oral every week route. by oral route. alprazolam No alprazolam 0.5 mg 0.5 mg tablet Take tablet 1 tablet Take 1 twice a day tablet by oral twice a route as day by needed for oral route 10 days. as needed for 10 days. Alvesco 160 No Alvesco mcg/actuati 160 on aerosol mcg/actuat inhaler ion aerosol inhaler atorvastati No atorvastat n 40 mg in 40 mg tablet TAKE tablet 1 TABLET TAKE 1 DAILY TABLET DIRECTED DAILY DIRECTED benzonatate No benzonatat 200 mg e 200 mg capsule capsule Take 1 Take 1 capsule 3 capsule 3 times a day times a by oral day by route for oral route 10 days. for 10 days. cetirizine No cetirizine 10 mg 10 mg tablet TAKE tablet 1 TABLET TAKE 1 DAILY IN TABLET THE MORNING DAILY IN THE MORNING cimetidine No cimetidine 400 mg 400 mg tablet TAKE tablet 1 TABLET TAKE 1 EVERY DAY TABLET IN THE EVERY DAY EVENING IN THE EVENING cyanocobala No 1mL cyanocobal min (vit portillo (vit B-12) 1,000 B-12) mcg/mL 1,000 injection mcg/mL solution injection Inject 1 mL solution every month Inject 1 by mL every subcutaneou month by s route. subcutaneo us route. cyclobenzap No cyclobenza rine 10 mg mando 10 tablet TAKE mg tablet 1 TABLET TAKE 1 THREE TIMES TABLET A DAY AFTER THREE MEALS TIMES A DAY AFTER MEALS Dayvigo 5 No 1 Q1D Dayvigo 5 mg tablet mg tablet Take 1 Take 1 tablet tablet every day every day by oral by oral route for route for 30 days. 30 days. Dexilant 30 No Dexilant mg capsule, 30 mg delayed capsule, release delayed release doxycycline No 1capsul BID doxycyclin monohydrate e(s) e 100 mg monohydrat capsule e 100 mg Take 1 capsule capsule Take 1 twice a day capsule by oral twice a route for day by 14 days. oral route for 14 days. estradiol 1 No estradiol mg tablet 1 mg Take 1 tablet tablet Take 1 every day tablet by oral every day route for by oral 90 days. route for 90 days. eszopiclone No eszopiclon 2 mg tablet e 2 mg Take 1 tablet tablet Take 1 every day tablet by oral every day route for by oral 30 days. route for 30 days. fluconazole No fluconazol 150 mg e 150 mg tablet tablet fluticasone No fluticason propionate e 50 propionate mcg/actuati 50 on nasal mcg/actuat spray,suspe ion nasal nsion [place] spray,susp 2 sprays ension every day [place] 2 by sprays intranasal every day route as by needed for intranasal 90 days. route as needed for 90 days. hydrochloro No hydrochlor thiazide 50 othiazide mg tablet 50 mg TAKE 1 tablet TABLET TAKE 1 DAILY IN TABLET THE MORNING DAILY IN THE MORNING ipratropium No ipratropiu bromide 42 m bromide mcg (0.06 42 mcg %) nasal (0.06 %) spray nasal spray montelukast No montelukas 10 mg t 10 mg tablet tablet omeprazole No omeprazole 20 mg 20 mg capsule,del capsule,de ayed layed release release TAKE 1 TAKE 1 CAPSULE CAPSULE DAILY DAILY ondansetron No ondansetro 8 mg n 8 mg disintegrat disintegra ing tablet ting Place [address] 1 every 8 tablet hours by every 8 translingua hours by l route for translingu 2 days. al route for 2 days. pantoprazol No pantoprazo e 40 mg le 40 mg tablet,kaylee tablet,del yed release ayed release potassium No potassium chloride 20 chloride mEq oral 20 mEq packet MIX oral AND DRINK 1 packet MIX PACKET AND DRINK TWICE A DAY 1 PACKET DIRECTED TWICE A DAY DIRECTED prednisone No 3 Q1D prednisone 20 mg 20 mg tablet Take tablet 3 tablets Take 3 every day tablets by oral every day route for 5 by oral days. route for 5 days. rabeprazole No rabeprazol 20 mg e 20 mg tablet,kaylee tablet,del yed release ayed release Spiriva No Spiriva Respimat Respimat 1.25 1.25 mcg/actuati mcg/actuat on solution ion for solution inhalation for inhalation tramadol 50 No tramadol mg tablet 50 mg TAKE 1 tablet TABLET BY TAKE 1 MOUTH EVERY TABLET BY 6 HOURS MOUTH NEEDED EVERY 6 HOURS NEEDED Trimo-Chavarria No Trimo-Chavarria Jelly 0.025 Jelly %-0.01 % 0.025 vaginal %-0.01 % Insert ONE vaginal gram Insert ONE vaginally gram needed vaginally needed valacyclovi No valacyclov r 1 gram ir 1 gram tablet Take tablet 1 tablet Take 1 every 12 tablet hours by every 12 oral route hours by for 7 days. oral route for 7 days. zolpidem 10 No zolpidem mg tablet 10 mg tablet Problems Condition Condition Condition Status Onset Resolution Last Treatin g Comments Name Details Category Date Date Treatment Clinician Date Herpes Herpes Problem Active simplex Simplex 5-21 type 1 Type 1 00:00: infection Infection 00 Hypokalemia Hypokalemia Problem Active 2-18 00:00: 00 Osteoporosi Osteoporosi Problem Active s s 1-15 00:00: 00 Impingement Impingement Problem Active 2017-05 syndrome of Syndrome of 0-27 shoulder Shoulder 00:00: region Region 00 History of History of Problem Active polyp of Polyp of 5-19 colon Colon 00:00: 00 Cystocele Cystocele Problem Active 5-12 00:00: 00 Menopausal Menopausal Problem Active symptom Symptom 5-12 00:00: 00 Bicipital Bicipital Problem Active tenosynovit Tenosynovit 4-18 is is 00:00: 00 Injury of Injury of Problem Active superior Superior 4-18 glenoid Glenoid 00:00: labrum of Labrum of 00 shoulder Shoulder joint Joint Generalized Generalized Problem Active 2016-05 anxiety Anxiety 1-11 disorder Disorder 00:00: 00 Chronic low Chronic Low Problem Active 2016-05 back pain Back Pain - 00:00: 00 Anxiety Anxiety Problem Active Insomnia Insomnia Problem Active Hypertensiv Hypertensiv Problem Active e disorder e Disorder Hyperlipide Hyperlipide Problem Active jeniffer jeniffer Claustropho Claustropho Problem Active ellis ellis Abuse of Abuse of Problem Active vitamins Vitamins Primary Primary Problem Active insomnia Insomnia Obstructive Obstructive Problem Active sleep apnea Sleep Apnea syndrome Syndrome Restless Restless Problem Active legs Legs Essential Essential Problem Active hypertensio Hypertensio n n Hemorrhoids Hemorrhoids Problem Active Chronic Chronic Problem Active recurrent Recurrent sinusitis Sinusitis Chronic Chronic Problem Active laryngitis Laryngitis Mild Mild Problem Active intermitten Intermitten t asthma t Asthma Temporomand Temporomand Problem Active ibular ibular joint Joint disorder Disorder Gastroesoph Gastroesoph Problem Active ageal ageal reflux Reflux disease Disease Osteopenia Osteopenia Problem Active Impaired Impaired Problem Active fasting Fasting glycemia Glycemia Procedures Procedure Date / Time Performed Performing Clinician Devic e pulse oximetry (PROC) 2020-02-14 00:00:00 Hemorrhoidectomy (Surg) 2019-06-14 00:00:00 Appendectomy 2018-06-15 00:00:00 Mammography 2018-05-15 00:00:00 UPPER GI ENDOSCOPY PERFORMED 2017-12-05 00:00:00 SHOULDER ARTHROSCOPY/SURGERY 2017-11-14 00:00:00 Shoulder Surgery 2017-11-12 00:00:00 Colonoscopy 2016-05-15 00:00:00 Egd 2014-05-15 00:00:00 Hysterectomy 2012-11-12 00:00:00 Hysterectomy 2012-11-12 00:00:00 Foot Surgery 2011-05-15 00:00:00 Orthopaedic Surgery 2010-04-25 00:00:00 Colonoscopy 2005-05-15 00:00:00 Partial Coccygectomy 1994-04-14 00:00:00 Adipose Tissue Reduction Operation 1993-05-15 00:00:00 Caesarean Section 1992-12-04 00:00:00 Caesarean Section 1992-05-15 00:00:00 Manipulation of Displaced Nasal 1980-05-15 00:00:00 Septum Other Other Results Test Description Test Time Test Comments Text Results Atomic Results Result Comments SARS-CoV-2, RALPH\S\ 2020-03-23 00:00:00 Test Item Value Reference Range Comments SARS-CoV-2, RALPH (test code = 68166-7) Not Detected Not Detect ed SARS coronavirus 2 Ag [Presence] in Respiratory specimen by Rapid immunoassay 2020-02-14 17:10:21 Test Item Value Reference Range Comments RAPID Nasal Covid (test code = RAPID Nasal Covid) negative Pathology [id number] 00:00:00Path ReportPathology [id number] 00:00:00 Path ReportPathology [id number] 00:00:00Path [id number] 16:51:[address] [id number] Patient: LAKEISHA CARRILLO : 1960 Sex: F Address: [address] [place] [address] [place] [address] Unit #: [id number] [facility] SEQ #: [id number] Location: SURGERY Room #: Ordering: OSWALD RAMOS MD Diagnosis: K648/OTHER HEMORRHOIDS ------- CHEST 2 VIEWS PA AND LATERAL History: K648/OTHER HEMORRHOIDS K648/OTHER HEMORRHOIDS Two views of the chest were obtained. The heart is normal. The lungs are clear. Vascularity is normal. Bony thorax is normal. There isnopneumothorax. Impression: No active disease. Final report electronically signed by: Zainab Fountain MD Signed by: ZAINAB FOUNTAIN II, MD 06/11/19 2231 cc: ZAINAB FOUNTAIN II,OSWALD [facility] 2000 [facility] - Serum or [id number] 16:38:00 Test Item Value Reference Range Comments sodium (test code = sodium) 140 mmol/L 137-144 potassium (test code = potassium) 3.4 mmol/L 3.1-5.1 chloride (test code = chloride) 103 mmol/L 101-110 carbon dioxide (test code = carbon dioxide) 30 mmol/L 22-2 9 glucose (test code = glucose) 80 mg/dL 70-105 BUN (test code = BUN) 12.0 mg/dL 9.8-20.1 creatinine (test code = creatinine) 0.79 mg/dL 0.57-1.11 est creat clear (test code = est creat clear) 67.85 mL/min anion gap (test code = anion gap) 10 mmol/L 7-16 calcium (test code = calcium) 9.2 mg/dL 8.4-10.2 Basic metabolic 2000 panel - Serum or [id number] 16:38:00 Test Item Value Reference Range Comments sodium (test code = sodium) 140 mmol/L 137-144 potassium (test code = potassium) 3.4 mmol/L 3.1-5.1 chloride (test code = chloride) 103 mmol/L 101-110 carbon dioxide (test code = carbon dioxide) 30 mmol/L 22-2 9 glucose (test code = glucose) 80 mg/dL 70-105 BUN (test code = BUN) 12.0 mg/dL 9.8-20.1 creatinine (test code = creatinine) 0.79 mg/dL 0.57-1.11 est creat clear (test code = est creat clear) 67.85 mL/min anion gap (test code = anion gap) 10 mmol/L 7-16 calcium (test code = calcium) 9.2 mg/dL 8.4-10.2 Basic metabolic 2000 panel - Serum or [id number] 16:38:00 Test Item Value Reference Range Comments sodium (test code = sodium) 140 mmol/L 137-144 potassium (test code = potassium) 3.4 mmol/L 3.1-5.1 chloride (test code = chloride) 103 mmol/L 101-110 carbon dioxide (test code = carbon dioxide) 30 mmol/L 22-2 9 glucose (test code = glucose) 80 mg/dL 70-105 BUN (test code = BUN) 12.0 mg/dL 9.8-20.1 creatinine (test code = creatinine) 0.79 mg/dL 0.57-1.11 est creat clear (test code = est creat clear) 67.85 mL/min anion gap (test code = anion gap) 10 mmol/L 7-16 calcium (test code = calcium) 9.2 mg/dL 8.4-10.2 Assessments Condition Name Status Diagnosis Date Treating Clinici an Headache Active 2020-02-14 17:23:49 Nasal congestion Active 2020-02-14 12:44:59 Productive cough Active 2020-02-14 12:45:04 Malaise and fatigue Active 2020-02-14 17:24:19 Acute maxillary sinusitis Active 2020-02-14 17:35:27 Primary insomnia Active 2020-02-14 17:35:37 Internal hemorrhoids Active 2019-07-14 09:53:02 Prolapsed internal hemorrhoids Active 2019-07-07 11:50: 03 Internal hemorrhoids Active 2019-06-23 15:30:58 Prolapsed internal hemorrhoids Active 2019-06-03 10:23: 34 Encounters Start End Encounter Admission Attending Care Care Encounter Date/Time Date/Time Type Type Clinicians Facility Department ID 2020-02-14 2020-02-14 [facility] [id number] 00:00:00 00:00:00 MD Adonay: [facility] [address] [facility], [place] [address], Ph. 2019-07-08 2019-07-08 Oswald Leahy [id number] 00:00:00 00:00:00 John: [facility] [id number] [address] [place] [address], Ph. 2019-07-01 2019-07-01 Oswald Leahy [id number] 02 00:00:00 00:00:00 John: [facility] [id number] [address] [place] [address], Ph. 2019-06-18 2019-06-18 Oswald Diallot [id number] 00:00:00 00:00:00 John: [facility] [id number] [address] [place] [address], Ph. 2019-06-14 2019-06-14 Outpatient [facility] [id number] 03:37:00 03:37:00 OSWALD Contreras 2019-06-03 2019-06-03 Oswald Diallot [id number] 02 00:00:00 00:00:00 John: [facility] [id number] [address] [place] [address], Ph. Immunizations Ordered Immunization Filled Immunization Date Status Commen ts Refusal Reason Name Name influenza, 2019-03-14 Completed injectable, 15:13:50 quadrivalent influenza, 2019-02-12 Completed injectable, 00:00:00 quadrivalent influenza, 2016-01-13 Completed unspecified 00:00:00 formulation Tdap 2015-05-06 Completed 15:26:31 influenza, seasonal, 2015-02-23 Completed injectable, 08:54:16 preservative free Payers Payer Name Policy Type Policy Number Effective Date Expiration D ate Plan of Treatment Planned Activity Planned Date Details Comments Future Appointment 2020-04-02 15:00:00 Yana Ugarte N [facility]; , [place] [address] Social History Smoking Status Start Date Stop Date Never Smoker Vital Signs Vital Name Observation Time Observation Value Comments Height 2020-02-14 00:00:00 64 [in_i] BMI (Body Mass Index) 2020-02-14 00:00:00 22.1 kg/m2 Body Weight 2020-02-14 00:00:00 129 [lb_av] BP Diastolic 2019-07-08 00:00:00 81 mm[Hg] Height 2019-07-08 00:00:00 64 [in_i] BMI (Body Mass Index) 2019-07-08 00:00:00 22.1 kg/m2 BP Systolic 2019-07-08 00:00:00 125 mm[Hg] Body Weight 2019-07-08 00:00:00 129 [lb_av] BP Diastolic 2019-07-01 00:00:00 82 mm[Hg] Height 2019-07-01 00:00:00 64 [in_i] BMI (Body Mass Index) 2019-07-01 00:00:00 22.1 kg/m2 BP Systolic 2019-07-01 00:00:00 135 mm[Hg] Body Weight 2019-07-01 00:00:00 128.5 [lb_av] BP Diastolic 2019-06-18 00:00:00 72 mm[Hg] Height 2019-06-18 00:00:00 64 [in_i] BMI (Body Mass Index) 2019-06-18 00:00:00 21.8 kg/m2 BP Systolic 2019-06-18 00:00:00 120 mm[Hg] Body Weight 2019-06-18 00:00:00 127 [lb_av] WEIGHT 2019-06-11 15:18:00 59.0 kg HEIGHT 2019-06-11 15:18:00 162.270988 cm BP Diastolic 2019-06-03 00:00:00 73 mm[Hg] Height 2019-06-03 00:00:00 64 [in_i] BMI (Body Mass Index) 2019-06-03 00:00:00 21.8 kg/m2 BP Systolic 2019-06-03 00:00:00 107 mm[Hg] Body Weight 2019-06-03 00:00:00 127 [lb_av] Hospital Discharge Instructions 1. Headache 2. Nasal congestion 3. Productive cough pulse oximetry (PROC) rapid SARS CoV 2 Ag, QL IA, respiratory specimen rapid flu (A+B) 4. Malaise and fatigue cyanocobalamin (vit B-12) 1,000 mcg/mL injection solution 5. Acute maxillary sinusitis prednisone 20 mg tablet doxycy mcwilliams monohydrate 100 mg capsule 6. Primary insomnia Dayvigo 5 mg tablet Discussion Note All pt.questions and concerns were addressed and answered. Pt. verbalized understanding and agreement of treatment plan. I spent up to 15 minutes of face to face time with patient and > 50% was spent in counseling and/or coordination of care. Quality measures/ USPSTF/AAFP screening guidelines and recommendations were reviewed and discussed and appropriate orders initiated if applicable. Patient educational handouts: No information available.1. Prolapsed internal hemorrhoids Discussion Note: None recorded. Patient educational handouts: No information available.
== END 2020-03-25 10:00 | disposition home or self-care (01) ==
LOC: END 07:54
PROVIDERS: ATTEND Internal Medicine Gastroenterology
DX: K29.50 Unspecified chronic gastritis without bleeding (principal); K21.9 Gastro-esophageal reflux disease without esophagitis; K59.09 Other constipation; E78.5 Hyperlipidemia, unspecified; I10 Essential (primary) hypertension; J45.20 Mild intermittent asthma, uncomplicated; M85.80 Other specified disorders of bone density and structure, unspecified site; G47.00 Insomnia, unspecified; Z86.010 Personal history of colon polyps; Z86.19 Personal history of other infectious and parasitic diseases; Z79.899 Other long term (current) drug therapy
CPT/HCPCS: 43239; 88342 ×2; 88305 ×2; J2704; 731

== ENCOUNTER → 2020-04-27 | Outpatient (CLI) | payer OTHER ==
--- NOTE | 2020-04-28 13:29 | RADIOLOGY REPORT (SQ) ---
EXAM DESCRIPTION: CT BONE LENGTH IMAGES COMPLETED DATE/TIME: 04/27/2020 3:37 pm REASON FOR STUDY: (Q72.819)CONGENITAL SHORTENING OF UNSPECIFIED LOWER LIMB Q72.819 CONGENITAL SHORT ENING OF UNSPECIFIED LOWER LIMB COMPARISON: None. TECHNIQUE: CT scanogram of the bilateral lower extremities is performed including pelvis to ankles. Measurements of femur, tibia, and entire lower extremities performed by the radiologist and saved to PACS. All CT scanners at this facility use dose modulation, iterative reconstruction, and/or weight based d osing when appropriate to reduce radiation dose to as low as reasonably achievable (ALARA). [facility]: Dose Right [facility]: CareDose [facility]: Dose Right [facility]: Teradose 4D [facility]: [employer] RADIATION DOSE: mGy. LIMITATIONS: None. FINDINGS: RIGHT: FEMUR: 44.6 cm. TIBIA: 35.6 cm. TOTAL RIGHT LOWER EXTREMITY LENGTH (INCLUDES THE KNEE JOINT SPACE): 79.7 cm. LEFT: FEMUR: 44.9 cm. TIBIA: 35.7 cm. TOTAL LEFT LOWER EXTREMITY LENGTH (INCLUDES THE KNEE JOINT SPACE): 80.1 cm. IMPRESSION: LEG LENGTH MEASUREMENTS DETAILED ABOVE. TECHNICAL DOCUMENTATION: JOB ID: [id number] Quality ID # [id number]: Final reports with documentation of one or more dose reduction techniques (e.g., Au tomated exposure control, adjustment of the mA and/or kV according to patient size, use of iterative reconstruction technique) 2010 [employer] All Rights Reserved Reading location - IP/workstation name: [email or web address]
== END ==
LOC: RAD 14:59
PROVIDERS: ATTEND Podiatrist Foot & Ankle Surgery
DX: Q72.819 Congenital shortening of unspecified lower limb (principal)
CPT/HCPCS: 77073

== ENCOUNTER → 2020-06-09 | Outpatient (CLI) | payer OTHER ==
--- NOTE | 2020-06-09 17:28 | RADIOLOGY REPORT (SQ) ---
EXAM DESCRIPTION: FOOT RIGHT COMPLETE IMAGES COMPLETED DATE/TIME: 06/09/2020 4:51 pm REASON FOR STUDY: (MM79.671)PAIN IN RIGHT FOOT M21.6X9 OTHER ACQUIRED DEFORMITIES OF UNSPECIFIED FO OT M79.671 PAIN IN RIGHT FOOT COMPARISON: None. NUMBER OF VIEWS: Three views. TECHNIQUE: AP, lateral and oblique with weight bearing radiographic images acquired of the right fo ot. LIMITATIONS: None. FINDINGS: MINERALIZATION: Normal. BONES: No acute fracture or dislocation. No worrisome bone lesions. No significant osteophytes. JOINTS: No erosions. No kylee-articular osteopenia. No chondrocalcinosis. SOFT TISSUES: No swelling. No calcifications. OTHER: No other significant finding. IMPRESSION: NEGATIVE STUDY OF THE RIGHT FOOT. NO EXPLANATION FOR PAIN. TECHNICAL DOCUMENTATION: JOB ID: [id number] 2010 [employer]- All Rights Reserved Reading location - IP/workstation name: [email or web address]
== END ==
LOC: RAD 16:22
PROVIDERS: ATTEND Podiatrist Foot & Ankle Surgery
DX: M21.6X1 Other acquired deformities of right foot (principal); M79.671 Pain in right foot